=== PATIENT | male | born 1995 | race Asian ===

== ENCOUNTER 2017-12-16 01:35 | Emergency (ER) | payer OTHER ==
[~2017-12-16] VITALS: Ht 175 cm; Wt 75.0 kg
[2017-12-16 01:40] VITALS: BP 144/88; TEMP 98.5
[2017-12-16 03:29] VITALS: PULSE 90
== END 2017-12-16 03:29 | disposition home or self-care (01) ==
LOC: COL.ER 01:35
DX: R25.1 Tremor, unspecified (principal)